=== PATIENT | female | born 1975 | race Caucasian/White ===

== ENCOUNTER 2017-03-24 13:19 | Emergency (ER) | payer OTHER ==
--- NOTE | ~2017-03-24 | CR72 ---
[facility] A Service of [facility] & [facility] RADIOLOGY TEXT RESULTS PATIENT: MARIELY FONSECA LOCATION: SED : 75 UNIT #: [id number] AGE: [address]: Adriane Greene SEX: F ORDER DR: [id number] [place] [id number] E MR#: [id number] Acc #: [id number] NAME: MARIELY FONSECA : 1975 SEX: F STUDY DATE/TIME: 03/24/2017 UNIT: SED ROOM: STUDY DESCRIPTION: CR Chest Single View Portable Attending Physician: Adriane Greene Pa-C Ordering Physician: Adriane Greene Pa-C Primary Care Physician: Joelle Almaraz A.P.R.N. MEDICAL IMAGING REPORT This report is preliminary unless electronic signature is present. EXAM Chest portable 03/24/2017 at 1335 hours HISTORY 41-year-old woman with 2-day history of cough, chest pain on left side today. Chest pain with deep inspiration. COMPARISON 11/15/2014. FINDINGS Portable upright chest demonstrates normal cardiac, mediastinal and hilar contours. The lungs are well expanded and clear. There is no effusion or pneumothorax. No bone lesion. IMPRESSION Normal upright portable chest film. Dictated by... Deepthi Hairston M.D. THIS IS AN ELECTRONICALLY VERIFIED REPORT Deepthi Hairston M.D. at 03/24/2017 3:51 PM CARLY/christa TD: 03/24/2017 15:32 JOB #: [id number] MEDICAL IMAGING REPORT Page 1 of 1
[~2017-03-24 13:19] MED LIST: NO MEDICATIONS
== END 2017-03-24 14:30 | disposition home or self-care (01) ==
LOC: SED 13:19
DX: J06.9 Acute upper respiratory infection, unspecified (principal); F17.210 Nicotine dependence, cigarettes, uncomplicated
CPT/HCPCS: 71010; 99283